=== PATIENT | male | born 1960 | race Caucasian/White ===

== ENCOUNTER 2019-10-05 13:59 | Outpatient (CLI) | payer BC ==
--- NOTE | 2019-10-05 15:43 | XRAY Report ---
Reason: LACERATION TO RIGHT THUMB Procedure Date: 10/05/2019 Accession Number: [id number] / [id number] Procedure: XRS - Finger(s) RT CPT Code: Final Report FULL RESULT: PROCEDURE: Finger(s) RT INDICATIONS: LACERATION TO RIGHT THUMB TECHNIQUE: 3 views of the right thumb COMPARISON: None. FINDINGS: No definite fracture is seen. There is degenerative sclerosis and spurring, probably subchondral cystic change. Soft tissue swelling and laceration seen at the distal tip of the thumb. No radiopaque foreign body identified. IMPRESSION: No definite fracture however follow-up radiographs in 10 days could be performed if the patient's symptoms do not improve to exclude occult fracture/assess for healing sclerosis. Reviewed by: Ugo Baxter MD on 10/05/2019 3:41 PM PDT Approved by: Ugo Baxter MD on 10/05/2019 3:41 PM PDT Station ID: [id number]
== END 2019-10-05 23:59 | disposition home or self-care (01) ==
LOC: DI.S 13:59
PROVIDERS: ATTEND Physician Assistant Medical
DX: S61.111A Laceration without foreign body of right thumb with damage to nail, initial encounter (principal)
CPT/HCPCS: 73140